=== PATIENT | female | born 1960 | race African-American/Black ===

== ENCOUNTER 2016-09-28 10:34 | Day surgery (SDC) | payer MEDICARE, OTHER ==
--- NOTE | ~2016-09-28 | EGD ---
EGD REPORT [facility] [address] [place] [address] NAME: MAYELA MELLO : 62 STATUS : REG [facility]#: [id number] AGE: 55 ADM/REG DATE : 09/28/16 MR#: [id number] REPORT SERV DATE: 09/28/16 DICTATED BY: AUGUSTINE VENTURA DATE: 09/28/16 REPORT STATUS : Draft TRANSCRIBED BY: [employer] DATE: 09/28/16 [facility] Center Patient Name: Mayela Mello Date of : 1960 Attending MD: AUGUSTINE VENTURA MD Procedure Date No Time: 09/28/2016 Procedure: Upper GI endoscopy Indications: Epigastric abdominal pain, Dysphagia, Heartburn, Suspected esophageal reflux, Unexplained chest pain Referring MD: RADHA OLEA Medicines: as per anesthesia Complications: No immediate complications. Procedure: Pre-Anesthesia Assessment: - ASA Grade Assessment: III - A patient with severe systemic disease. After obtaining informed consent, the endoscope was passed under direct vision. Throughout the procedure, the patient's blood pressure, pulse, and oxygen saturations were monitored continuously. The GIF [id number] was introduced through the mouth, and advanced to the third part of duodenum. The upper GI endoscopy was accomplished without difficulty. The patient tolerated the procedure. Findings: The examined esophagus was normal. The scope was withdrawn. Dilation was performed with a Trotter dilator with no resistance at 46 Fr. The entire examined stomach was normal. The cardia and gastric fundus were normal on retroflexion. The examined duodenum was normal. Impression: - Normal esophagus. Dilated. - Normal stomach. - Normal examined duodenum. Recommendation: - Follow an antireflux regimen. - Continue present medications. Procedure Code(s): --- Professional --- 74951, Esophagogastroduodenoscopy, flexible, transoral; diagnostic, including collection of specimen(s) by brushing or washing, when performed (separate procedure) 42568, Dilation of esophagus, by unguided sound or bougie, single or multiple passes EGD REPORT [facility] [address] [place]. [address] NAME: MAYELA MELLO : 62 STATUS : REG [facility] PAT#: [id number] AGE: 55 ADM/REG DATE : 09/28/16 MR#: [id number] REPORT SERV DATE: 09/28/16 DICTATED BY: AUGUSTINE VENTURA. DATE: 09/28/16 REPORT STATUS : Draft TRANSCRIBED BY: [employer] DATE: 09/28/16 Diagnosis Code(s): --- Professional --- R10.13, Epigastric pain R13.10, Dysphagia, unspecified R12, Heartburn R07.9, Chest pain, unspecified CPT copyright 2013 [employer]. All rights reserved. The codes documented in this report are preliminary and upon metal molder review may be revised to meet current compliance requirements. AUGUSTINE VENTURA MD 09/28/2016 12:24 PM This report has been signed electronically. Number of Addenda: 0 Note Initiated On: 09/28/2016 12:03 PM Scope Withdrawal Time 0 hours 0 minutes 0 seconds [address] [facility] [place] [address]
[~2016-09-28 10:34] MED LIST: ACTONEL35 MG PO; ALBUTEROL INH; ALLEGRA180 PO; ASMANEX INH; AVINZA60 PO; CHANTIX0.5 PO; COMP10B PO; CYMBALTA30 PO; ENDOCET1 TA1 PO; FORADIL INH; HALF81 PO; LINZESS 145 M145 MCG PO; LIPITOR20 PO; LOTREL1 CA1 PO; LYRICA75 PO; MAX25 PO; MICARDIS80 PO; NAMENDA10 MG PO; NEUR300 PO; NEXIUM40 PO; NORV5 PO; NUVIGIL250 MG PO; OXYFAST PO; P5 PO; PERCOCET 10/3251 TAB PO; PLAVIX PO; PR12.5 PO; PR25 PO; PREDNISOL5 PO; PRILO PO; PROTONIX PO; PROVENTSOL INH; RANITIDINE300 MG PO; SINGULAIR1 PO; SOMATAB PO; SPIRIVA INH; SYMBICORT 160/41 INH INH; V5 PO; VITAMIN D1000 UNI1 PO; VITAMIN D400 UNI1 PO; VITD PO; ZANAFLEX 4 MG TA4 MG PO; ZOFRAN4 PO
== END 2016-09-28 23:59 | disposition home or self-care (01) ==
LOC: DMU 10:34
PROVIDERS: Internal Medicine Gastroenterology
PROC: 0DJ08ZZ Inspection of Upper Intestinal Tract, Via Natural or Artificial Opening Endoscopic (ICD-10-PCS; principal; 2016-09-28 11:30)
PROC: 0D757ZZ Dilation of Esophagus, Via Natural or Artificial Opening (ICD-10-PCS; 2016-09-28 11:30)
DX: R13.10 Dysphagia, unspecified (principal); D86.9 Sarcoidosis, unspecified; I10 Essential (primary) hypertension; Z88.8 Allergy status to other drugs, medicaments and biological substances; E78.00 Pure hypercholesterolemia, unspecified